=== PATIENT | male | born 1995 | race Caucasian/White ===

== ENCOUNTER 2019-12-01 11:15 | Emergency (ER) | payer OTHER, SELFPAY ==
--- NOTE | ~2019-12-01 | XR_ITS ---
EXAMINATION: XR finger 2nd RT min 2V DATE: 12/01/2019 11:56 INDICATION: Laceration to the left second digit TECHNIQUE: Dorsal palmar, lateral and 2 oblique views of the second digit were obtained COMPARISON: None FINDINGS: Alignment is normal. No fracture. Joint spaces are normal. Soft tissue swelling about the proximal in terphalangeal joint. No radiopaque foreign bodies. IMPRESSION: 1. No osseous abnormality or radiopaque foreign body. Reviewed, dictated and finalized at location A.
[2019-12-01 11:25] VITALS: BP 115/63; PULSE 87; RESP 18; TEMP 36.7; O2SAT 99
--- NOTE | 2019-12-01 11:30 | PC.NURSE ---
Pt refuses to enter a pharmacy I won't take anything they give me anyway.
--- NOTE | 2019-12-01 11:52 | PC.NURSE ---
pt to xray via wheelchair with radiology at this time.
--- NOTE | 2019-12-01 12:43 | ED.WOUNDLAC ---
HPI - Wound/Laceration General Chief Complaint: Wound/Laceration <ALEJANDRA Ford Last Filed: 12/01/19 13:57> Stated Complaint: lac - index finger <ALEJANDRA Ford Last Filed: 12/01/19 13:57> Time Seen by Provider: 12/01/19 12:00 <ALEJANDRA Ford Last Filed: 12/01/19 13:57> Source: patient <ALEJANDRA Ford Last Filed: 12/01/19 13:57> Mode of arrival: ambulatory <ALEJANDRA Ford Last Filed: 12/01/19 13:57> Limitations: no limitations <ALEJANDRA Ford Last Filed: 12/01/19 13:57> History of Present Illness HPI narrative: This is a 24-year-old male that presents to the emergency department for laceration to the right second finger sustained just prior to arrival. Reports he was at work and sustained a laceration on a metal object. Reports bleeding is controlled. He is up-to-date on tetanus. Denies decreased range of motion or numbness. <ALEJANDRA Ford Last Filed: 12/01/19 13:57> Related Data Home Medications: Home Medications Medication Instructions Recorded Confirmed No Home Medications 12/01/19 <ALEJANDRA Ford Last Filed: 12/01/19 13:57> Allergies/Adverse Reactions: Allergies Allergy/AdvReac Type Severity Reaction Status Date / Time schwartz flavor AdvReac Vomiting Verified 12/01/19 11:29 mint AdvReac Vomiting Verified 12/01/19 11:29 <ALEJANDRA Ford Last Filed: 12/01/19 13:57> Review of Systems Review of Systems: Narrative: CONSTITUTIONAL: Denies fever SKIN: Reports laceration MUSCULOSKELETAL: Denies joint pain, or myalgia. NEUROLOGIC: Denies numbness <ALEJANDRA Ford Last Filed: 12/01/19 13:57> All systems reviewed & are unremarkable except as noted in HPI and below <ALEJANDRA Ford Last Filed: 12/01/19 13:57> [facility] Past Medical History Medical History: Medical History (Updated 12/01/19 @ 13:56 by Denisse Birch PA-C) No active medical problems <Denisse Birch PA-C - Last Filed: 12/01/19 13:57> Social History Social History: Social History (Updated 12/01/19 @ 12:47 by Denisse Birch PA-C) Substance use: never Gender identity (if verbalized by the patient): Male <Denisse Birch PA-C - Last Filed: 12/01/19 13:57> Exam Narrative: Exam Narrative: GENERAL: Well-appearing, well-nourished, and in no acute distress. HEAD: Normocephalic, atraumatic. EYES: EOMI. EXTREMITIES: Normal range of motion. No edema or obvious deformity. Right 2nd finger middle phalanx palmar surface with 1.5cm linear laceration into subcutaneous tissue SKIN: Warm, dry, no rash. NEURO: No focal deficits. Alert and oriented x3. PSYCH: Normal mood and affect <Denisse Birch PA-C - Last Filed: 12/01/19 13:57> Course Vital Signs Vital signs: Vital Signs Temperature 36.7 C 12/01/19 11:25 Pulse Rate 87 12/01/19 11:25 Respiratory Rate 18 12/01/19 11:25 Blood Pressure 115/63 12/01/19 11:25 Pulse Oximetry 99 12/01/19 11:25 Temperature 36.7 C 12/01/19 11:25 Pulse Rate 87 12/01/19 11:25 Respiratory Rate 18 12/01/19 11:25 Blood Pressure 115/63 12/01/19 11:25 Pulse Oximetry 99 12/01/19 11:25 <Denisse Birch PA-C - Last Filed: 12/01/19 13:57> Vital Signs Temperature 36.7 C 12/01/19 11:25 Pulse Rate 87 12/01/19 11:25 Respiratory Rate 18 12/01/19 11:25 Blood Pressure 115/63 12/01/19 11:25 Pulse Oximetry 99 12/01/19 11:25 Temperature 36.7 C 12/01/19 11:25 Pulse Rate 87 12/01/19 11:25 Respiratory Rate 18 12/01/19 11:25 Blood Pressure 115/63 12/01/19 11:25 Pulse Oximetry 99 12/01/19 11:25 <Adelina Beck MD - Last Filed: 12/01/19 13:58> Procedures Laceration Laceration 1: Date: 12/01/19 <Denisse Birch PA-C - Last Filed: 12/01/19 13:57> Time: 13:54 <Denisse Birch PA-C - Last Filed: 12/01/19 13:57> Site: hand <Denisse
--- NOTE | 2019-12-01 12:59 | PC.NURSE ---
rn placed laceration tray, 5-0 ethilon (13mm), telfa, kerle, gauze at bedside for erp.
[2019-12-01 14:22] VITALS: BP 105/57; PULSE 58; RESP 18; TEMP 36.9; O2SAT 98
== END 2019-12-01 14:23 | disposition home or self-care (01) ==
PROVIDERS: Emergency Provider Emergency Medicine
DX: S61.210A Laceration without foreign body of right index finger without damage to nail, initial encounter (principal); W26.9XXA Contact with unspecified sharp object(s), initial encounter
CPT/HCPCS: 12001; 73140; 99282